=== PATIENT | female | born 1965 | race African-American/Black ===

== ENCOUNTER 2018-07-23 14:40 | Outpatient (CLI) | payer OTHER ==
--- NOTE | 2018-07-23 16:27 | MMO ---
SCREENING MAMMOGRAPHY 07/23/18 COMPARISON: 03/16/09 HISTORY: Screening mammogram. FINDINGS: The patient's mammogram is interpreted with the assistance of computer aided detection. Breast parenchyma is composed of heterogeneously dense breast tissue. The examination is assessed wit h the assistance of computer aided detection. There are two post biopsy clips within the medial aspect of the right breast. There are scattered dalia ign appearing calcifications noted bilaterally. There is no dominant mass, architectural distortion. No concerning microcalcifications are seen. IMPRESSION: BIRADS 2: Benign Finding(s) Routine annual screening mammography (for women over age 40). POS: [facility]
== END 2018-07-23 14:41 | disposition home or self-care (01) ==
LOC: SCSMAMMO 14:40
PROVIDERS: ATTEND Physician Assistant
DX: Z12.31 Encounter for screening mammogram for malignant neoplasm of breast (principal)
CPT/HCPCS: 77067

== ENCOUNTER 2018-07-25 11:51 | Emergency (ER) | payer OTHER ==
[2018-07-25] MEDS ORDERED: Ketorolac Tromethamine 30 MG/ML VIAL ONE (12:29)
[2018-07-25] MEDS ORDERED: Ketorolac Tromethamine 60 MG/2 ML VIAL ONE (12:32)
--- NOTE | 2018-07-25 13:12 | RAD ---
RIGHT SHOULDER THREE VIEWS: History: Right shoulder pain. FINDINGS/IMPRESSION: No fracture, dislocation, or bony destruction is seen. POS: [facility]
== END 2018-07-25 13:21 | disposition home or self-care (01) ==
LOC: ERS 11:51
DX: S46.911A Strain of unspecified muscle, fascia and tendon at shoulder and upper arm level, right arm, initial encounter (principal); I10 Essential (primary) hypertension; F17.290 Nicotine dependence, other tobacco product, uncomplicated; X58.XXXA Exposure to other specified factors, initial encounter
CPT/HCPCS: 96372; J1885

== ENCOUNTER 2019-04-16 12:04 | Emergency (ER) | payer OTHER ==
--- NOTE | 2019-04-16 12:43 | RAD ---
CHEST 1 VIEW: INDICATION: Chest pain radiating into the left arm with shortness of breath starting today. COMPARISON: Prior chest radiograph dated 08/07/2004. FINDINGS: No consolidation, pleural effusion, or pneumothorax is evident. Heart size and pulmonary vasculature are within normal limits. No acute osseous abnormality is noted. IMPRESSION: No definite acute cardiopulmonary abnormality. POS: [facility]
[2019-04-16 12:52] LABS: #Basophils 0.1 thou/uL (0.0-0.2); #Eosinphils 0.1 thou/uL (0.0-0.7); #Lymphocytes 2.8 thou/uL (1.20-3.40); #Monocytes 0.6 thou/uL (0.11-0.59); #Neutrophils 2.4 thou/uL (1.40-6.50); %Basophils 1.7 % (0.0-1.0); %Lymphocytes 47.7 % (21.0-51.0); %Monocytes 9.5 % (0.0-10.0); %Neutrophils 40.1 % (42.0-75.0); Mean Corpuscular HGB CONC 33.6 g/dL (32.0-36.0); Mean Corpuscular Hemoglobin 31.9 pg (27.0-31.0); Mean Corpuscular Volume 94.9 fL (78.0-98.0); Mean Platelet Volume 6.1 fL (7.4-10.4); Platelet Count 284 thou/uL (130-400); RBC Distribution Width 12.2 % (11.5-14.5); Red Blood Cell (RBC) Count 4.39 mill/uL (4.20-5.40)
--- NOTE | 2019-04-16 13:11 | ULT ---
ULTRASOUND DOPPLER DUPLEX VENOUS LEFT LOWER EXTREMITY: DATE: 04/16/2019 HISTORY: 53-year-old female with left lower extremity edema TECHNIQUE: Grayscale, color-flow, and spectral analysis, of major veins of left lower extremity. FINDINGS: There is demonstration of blood flow with normal compressibility, of the left common femoral, profund a femoral, greater saphenous, femoral, popliteal, and posterior tibial, veins. IMPRESSION: Negative. No deep venous thrombosis of left lower extremity.
[2019-04-16 13:20] LABS: ALT (SGPT) 13 U/L (8-55); AST (SGOT) 16 U/L (5-34); Albumin 4.4 g/dL (3.5-5.0); Alkaline Phosphatase 66 U/L (40-150); Anion Gap 13 mmol/L (10-20); BUN (Urea Nitrogen) 18 mg/dL (9.8-20.1); Bilirubin, Total 0.3 mg/dL (0.2-1.2); CK (CPK) 138 U/L (29-168); Calc. Creatinine Clearance 0 mL/min (70-130); Calcium 9.6 mg/dL (7.8-10.44); Carbon Dioxide 24 mmol/L (22-29); Chloride 105 mmol/L (98-107); Estimated GFR-MDRD Greater than 90; Globulin 2.4 g/dL (2.4-3.5); Glucose 80 mg/dL (70-105); Protein, Total 6.8 g/dL (6.0-8.3); Sodium 138 mmol/L (136-145)
[2019-04-16] MEDS ORDERED: Ketorolac Tromethamine 30 MG/ML VIAL ONE (14:44)
--- NOTE | 2019-04-16 15:32 | CT ---
CTA OF THE THORAX UTILIZING IV CONTRAST, PE PROTOCOL AND 3D REFORMATTED IMAGIN04/16/19 INDICATION: Left leg swelling, chest pain, shortness of breath. COMPARISON: None. FINDINGS: No central or segmental pulmonary embolus is evident. There is scattered emphysema. There is an 8 mm pulmonary nodule in the right upper lobe. The visualized upper abdomen reveals no acute abnormality. There are scattered degenerative and osteoarthritic change. IMPRESSION: 1. No central or segmental pulmonary embolus. 2. Emphysema. 3. Right upper lobe pulmonary nodule measuring 8 mm. A follow-up examination in three months is recommended to document stability. Code LN POS: [facility]
[2019-04-16] MEDS ORDERED: ISOVUE-370 76%-LOCM 1 ML ONE (17:15)
== END 2019-04-16 16:07 | disposition home or self-care (01) ==
LOC: ERS 12:04
DX: M25.562 Pain in left knee (principal); R07.89 Other chest pain; I10 Essential (primary) hypertension; F17.210 Nicotine dependence, cigarettes, uncomplicated; Z79.899 Other long term (current) drug therapy
CPT/HCPCS: 36415; 71045; 71275; 80053; 82550; 84484; 85025; 85379; 93005; 96374; J1885; Q9966